=== PATIENT | female | born 1995 | race Two or more races ===

== ENCOUNTER 2022-11-12 19:28 | Inpatient (IN) ==
[2022-11-12] MEDS ORDERED: Lactated Ringers 1000 ml BAG 1,000 ML IV ONE (20:39)
[2022-11-12] MEDS ORDERED: Buffered Lidocaine 1% SYRIN 1 ml INTRADERM ONE (20:39)
[2022-11-12] MEDS ORDERED: Lactated Ringers 1000 ml BAG 1,000 ML IV SCH (21:00)
[2022-11-12 21:56] LABS: Urine Benzodiazepine Screen None Detected (None Detect); Urine Cannabinoids Screen None Detected (None Detect); Urine Opiates Screen None Detected (None Detect)
[2022-11-13] MEDS ORDERED: Witch Hazel PAD JAR TOPICAL PRN (06:43)
[2022-11-13] MEDS ORDERED: Oxytocin 10 UNITS/ML 1 ML VIAL IM ONE (06:43)
[2022-11-13] MEDS ORDERED: Glycerin ADULT 2.4 gm SUPP PR PRN (06:43)
[2022-11-13 08:58] LABS: Hematocrit 25.6 % (35-45); Mean Platelet Volume 9.4 fL (7.5-11.2); Platelet Count 272 10^3/uL (150-450); Red Cell Distribution Width 14.4 % (12-17); White Blood Count 24.4 10^3/uL (3.8-11.8)
[2022-11-13] MEDS: Dibucaine 1% OINT 28.35 GM TUBE PR PRN (11:38)
[2022-11-13] MEDS ORDERED: Lidocaine 1% VIAL 10 MG/ML VIAL 30 ML ONE (12:13)
[2022-11-14 08:36] LABS: ABS Eosinophils 0.1 10^3/uL (0.0-0.5); ABS Lymphocytes 2.4 10^3/uL (1.0-4.8); ABS Monocytes 0.9 10^3/uL (0.0-0.9); ABS Nucleated RBC 0.01 10^3/ul; Eosinophil % 0.6 %; Hematocrit 19.5 % (35-45); Hemoglobin 6.7 g/dL (11.5-14.3); Lymphocyte % 21.1 %; Mean Corpuscular Hemoglobin 27.6 pg (27-33); Mean Corpuscular Hgb Conc 34.2 g/dL (31-36); Mean Corpuscular Volume 80.7 fL (80-97); Mean Platelet Volume 8.8 fL (7.5-11.2); Platelet Count 207 10^3/uL (150-450); Red Blood Count 2.42 10^6/uL (3.63-4.92); Red Cell Distribution Width 14.9 % (12-17); White Blood Count 11.4 10^3/uL (3.8-11.8)
[2022-11-14] MEDS ORDERED: Tetan/Diph/Pertus SYR(Tdap) 0.5 ML SYR(BOOSTRIX) use SYR contains LATEX IM ONE (10:45)
[2022-11-15] MEDS: Dibucaine 1% OINT 28.35 GM TUBE PR PRN (06:25)
[2022-11-15 07:31] VITALS: BP 93/58
[2022-11-15 08:24] LABS: Hematocrit 30.5 % (35-45); Hemoglobin 10.6 g/dL (11.5-14.3)
== END 2022-11-15 13:14 | disposition home or self-care (01) | DRG 560 ==
LOC: MCHOBOUT 19:28 → MCHOB 21:01
PROVIDERS: ADMIT Midwife; ATTEND Midwife